=== PATIENT | male | born 1970 | race Caucasian/White ===

== ENCOUNTER 2017-07-20 07:03 | Day surgery (SDC) | payer OTHER ==
[~2017-07-20] VITALS: Ht 180.3 cm; Wt 113.4 kg
[2017-07-20 07:31] VITALS: BP 142/93
[2017-07-20 10:39] VITALS: BP 116/65
== END 2017-07-20 11:55 | disposition home or self-care (01) ==
LOC: DS 07:03 → GI 09:30 → OR 09:30 → DS 11:55
PROVIDERS: Internal Medicine Gastroenterology
PROC: 0DB68ZX Excision of Stomach, Via Natural or Artificial Opening Endoscopic, Diagnostic (ICD-10-PCS; principal; 2017-07-20 09:30)
DX: K21.9 Gastro-esophageal reflux disease without esophagitis (principal); K21.0 Gastro-esophageal reflux disease with esophagitis; K44.9 Diaphragmatic hernia without obstruction or gangrene; K31.7 Polyp of stomach and duodenum
CPT/HCPCS: 43235; J1200; J1610; J2250; J2310; J3010; J3490

== ENCOUNTER 2017-10-25 07:01 | Emergency (ER) | payer OTHER ==
[~2017-10-25] VITALS: Ht 180.3 cm; Wt 114.0 kg
[2017-10-25 07:08] VITALS: Ht 180.3 cm; Wt 114.0 kg
[2017-10-25 08:26] VITALS: BP 125/85
[2017-10-26] MEDS ORDERED: GOOD SENSE OMEP20 MG PO (01:27)
[2017-10-26] MEDS ORDERED: CITALOPRAM HYDR40 M1 PO (01:29)
== END 2017-10-25 09:59 | disposition home or self-care (01) ==
LOC: ED 07:01
DX: J18.9 Pneumonia, unspecified organism (principal); M54.6 Pain in thoracic spine; K21.9 Gastro-esophageal reflux disease without esophagitis
CPT/HCPCS: J0696; J2270; Q0162

== ENCOUNTER 2017-10-25 22:05 | Inpatient (IN) | payer OTHER ==
[~2017-10-25] VITALS: Ht 180.3 cm; Wt 114.6 kg
[2017-10-25 22:46] VITALS: Ht 180.3 cm; Wt 114.6 kg
[2017-10-26] VITALS (7 sets, daily range): BP systolic 115–128; BP diastolic 63–80
[2017-10-26 00:37] LABS: CALCIUM 8.8 mg/dL (8.5-10.1); CARBON DIOXIDE 28.6 mmol/L (21-32); CHLORIDE SERUM 96 mmol/L (98-107); CREATININE SERUM 1.2 mg/dL (0.7-1.3); GFR1 > 60 mL/min; GLUCOSE SERUM 125 mg/dL (74-106); POTASSIUM SERUM 4.4 mmol/L (3.5-5.1); SODIUM SERUM 128 mmol/L (136-145)
[2017-10-26 00:41] LABS: ALKALINE PHOSPHATASE 115 U/L (46-116); ALT/SGPT 88 U/L (16-63); AST/SGOT 38 U/L (15-37); BILIRUBIN TOTAL 0.62 mg/dL (0.20-1.00); LIPASE 101 IU/L (73-393)
[2017-10-26 00:42] LABS: ALBUMIN 3.3 g/dL (3.4-5.0); TOTAL PROTEIN, SERUM 8.9 g/dL (6.4-8.2)
[2017-10-26 00:51] LABS: PLATELET COUNT 439 x10^3mcL (130-400); RED CELL DISTRIBUTION WIDTH 18.3 % (11.5-14.5)
[2017-10-26 01:22] LABS: BAND NEUTROPHIL 2 % (0-10); MONOCYTE 5 % (0-7); SEGMENTED NEUTROPHILS 80 % (37-75)
[2017-10-26 01:25] LABS: BASOPHIL 0 % (0-2)
[2017-10-26 01:26] LABS: rbc morphology (normal/abnorm) ABNORMAL (NORMAL)
[2017-10-26] MEDS ORDERED: GOOD SENSE OMEP20 MG PO (01:27)
[2017-10-26] MEDS ORDERED: CITALOPRAM HYDR40 M1 PO (01:29)
[2017-10-26 02:42] LABS: UA SPECIFIC GRAVITY >=1.030 (1.005-1.035); microscopic required? YES; urine erythrocyte NEGATIVE (NEGATIVE)
[2017-10-26 10:21] LABS: AMPHETAMINE QUAL UR NONE DETECTED (See below)
[2017-10-27 05:24] VITALS: BP 112/67
[2017-10-27 06:16] LABS: CALCIUM 8.5 mg/dL (8.5-10.1); CARBON DIOXIDE 32.7 mmol/L (21-32); CHLORIDE SERUM 100 mmol/L (98-107); CREATININE SERUM 0.9 mg/dL (0.7-1.3); GFR1 > 60 mL/min; GLUCOSE SERUM 116 mg/dL (74-106); SODIUM SERUM 137 mmol/L (136-145)
[2017-10-27 08:23] LABS: PLATELET COUNT 346 x10^3mcL (130-400)
[2017-10-27 08:25] LABS: BASOPHIL % 0 % (0-2); RED CELL DISTRIBUTION WIDTH 18.1 % (11.5-14.5)
[2017-10-27 09:17] VITALS: BP 123/80
[2017-10-27 13:13] VITALS: BP 127/63
[2017-10-27 17:00] VITALS: BP 108/72
[2017-10-27 20:43] VITALS: BP 116/74
[2017-10-28 05:28] VITALS: BP 126/75
[2017-10-28 05:59] LABS: BASOPHIL % 0.3 % (0-2); PLATELET COUNT 362 x10^3mcL (130-400)
[2017-10-28 06:01] LABS: RED CELL DISTRIBUTION WIDTH 18.8 % (11.5-14.5)
[2017-10-28 06:14] LABS: CALCIUM 8.6 mg/dL (8.5-10.1); CHLORIDE SERUM 101 mmol/L (98-107); GFR1 > 60 mL/min; GLUCOSE SERUM 109 mg/dL (74-106); POTASSIUM SERUM 4.4 mmol/L (3.5-5.1); SODIUM SERUM 136 mmol/L (136-145)
[2017-10-28 08:22] VITALS: BP 133/75
[2017-10-28] MEDS ORDERED: LEVAQUIN750 MG PO (09:32)
[2017-10-28 10:18] VITALS: BP 133/75
[2017-10-28 11:40] VITALS: BP 121/77
== END 2017-10-28 13:38 | disposition home or self-care (01) | DRG 720 ==
LOC: ED 22:05 → DU 10-26 01:45
PROVIDERS: Emergency Medicine; Internal Medicine Pulmonary Disease
DX: A41.9 Sepsis, unspecified organism (principal); J13 Pneumonia due to Streptococcus pneumoniae; E87.1 Hypo-osmolality and hyponatremia; N28.89 Other specified disorders of kidney and ureter; F41.9 Anxiety disorder, unspecified; K21.9 Gastro-esophageal reflux disease without esophagitis; R09.02 Hypoxemia
CPT/HCPCS: 83880; J0696; J1885; J1956; J2270; J2543; J3490; J7030; Q0092; Q0162; Q9967

== ENCOUNTER 2017-11-01 07:09 | Observation (INO) | payer OTHER ==
[~2017-11-01] VITALS: Ht 180.3 cm; Wt 111.7 kg
[~2017-11-01 07:09] MED LIST: CITALOPRAM HYDR40 M1 PO; GOOD SENSE OMEP20 MG PO; LEVAQUIN750 MG PO
[2017-11-01 07:20] VITALS: Ht 180.3 cm; Wt 111.7 kg
[2017-11-01 08:10] LABS: BASOPHIL % 0.2 % (0-2)
[2017-11-01 08:19] LABS: PLATELET COUNT 493 x10^3mcL (130-400); RED CELL DISTRIBUTION WIDTH 18.4 % (11.5-14.5)
[2017-11-01 08:31] LABS: CALCIUM 8.5 mg/dL (8.5-10.1); CARBON DIOXIDE 27.2 mmol/L (21-32); CHLORIDE SERUM 97 mmol/L (98-107); CREATININE SERUM 1.1 mg/dL (0.7-1.3); GFR1 > 60 mL/min; GLUCOSE SERUM 114 mg/dL (74-106); POTASSIUM SERUM 3.9 mmol/L (3.5-5.1); SODIUM SERUM 131 mmol/L (136-145)
[2017-11-01 08:35] LABS: ALKALINE PHOSPHATASE 204 U/L (46-116); ALT/SGPT 93 U/L (16-63); AMYLASE 41 U/L (25-115); AST/SGOT 82 U/L (15-37); BILIRUBIN TOTAL 0.49 mg/dL (0.20-1.00); LIPASE 190 IU/L (73-393); TOTAL PROTEIN, SERUM 7.8 g/dL (6.4-8.2)
[2017-11-01 08:37] LABS: ALBUMIN 2.3 g/dL (3.4-5.0)
[2017-11-01 10:54] LABS: microscopic required? YES; urine erythrocyte NEGATIVE (NEGATIVE)
[2017-11-01] MEDS ORDERED: NORCO1 TA2 GT (11:08)
[2017-11-01 12:45] LABS: AMPHETAMINE QUAL UR NONE DETECTED (See below)
[2017-11-01 13:17] VITALS: BP 121/75
[2017-11-01 17:08] VITALS: BP 118/71
[2017-11-01 20:00] VITALS: BP 141/82
[2017-11-02 05:09] VITALS: BP 123/77
[2017-11-02 06:37] LABS: BASOPHIL % 0.2 % (0-2)
[2017-11-02 06:46] LABS: ALKALINE PHOSPHATASE 168 U/L (46-116); ALT/SGPT 76 U/L (16-63); AST/SGOT 55 U/L (15-37); BILIRUBIN TOTAL 0.4 mg/dL (0.20-1.00); CALCIUM 8.2 mg/dL (8.5-10.1); CARBON DIOXIDE 28.7 mmol/L (21-32); CHLORIDE SERUM 99 mmol/L (98-107); CREATININE SERUM 0.8 mg/dL (0.7-1.3); GFR1 > 60 mL/min; GLUCOSE SERUM 102 mg/dL (74-106); MAGNESIUM 2.1 mg/dL (1.8-2.4); PHOSPHOROUS 3.1 mg/dL (2.5-4.9); PLATELET COUNT 402 x10^3mcL (130-400); POTASSIUM SERUM 4.1 mmol/L (3.5-5.1); RED CELL DISTRIBUTION WIDTH 18.6 % (11.5-14.5); SODIUM SERUM 135 mmol/L (136-145)
[2017-11-02 08:57] VITALS: BP 118/77
[2017-11-02 16:01] VITALS: BP 128/80
[2017-11-02 20:00] VITALS: BP 120/74
[2017-11-03 05:25] VITALS: BP 114/81
[2017-11-03 06:56] LABS: ALKALINE PHOSPHATASE 190 U/L (46-116); ALT/SGPT 92 U/L (16-63); AST/SGOT 71 U/L (15-37); BILIRUBIN TOTAL 0.4 mg/dL (0.20-1.00); CALCIUM 8.3 mg/dL (8.5-10.1); CARBON DIOXIDE 31.8 mmol/L (21-32); CHLORIDE SERUM 99 mmol/L (98-107); CREATININE SERUM 0.8 mg/dL (0.7-1.3); GFR1 > 60 mL/min; GLUCOSE SERUM 99 mg/dL (74-106); MAGNESIUM 2.2 mg/dL (1.8-2.4); PHOSPHOROUS 3.6 mg/dL (2.5-4.9); POTASSIUM SERUM 3.9 mmol/L (3.5-5.1); SODIUM SERUM 135 mmol/L (136-145); TOTAL PROTEIN, SERUM 7.2 g/dL (6.4-8.2)
[2017-11-03 07:01] LABS: ALBUMIN 2.1 g/dL (3.4-5.0)
[2017-11-03 07:02] LABS: BASOPHIL % 0.1 % (0-2); PLATELET COUNT 384 x10^3mcL (130-400)
[2017-11-03 07:06] LABS: RED CELL DISTRIBUTION WIDTH 18.5 % (11.5-14.5)
[2017-11-03 09:20] VITALS: BP 122/76
[2017-11-03 17:27] VITALS: BP 118/72
[2017-11-03 20:50] VITALS: BP 128/91
[2017-11-04 05:22] VITALS: BP 132/84
[2017-11-04 06:57] LABS: ALKALINE PHOSPHATASE 179 U/L (46-116); ALT/SGPT 93 U/L (16-63); AST/SGOT 66 U/L (15-37); BILIRUBIN TOTAL 0.3 mg/dL (0.20-1.00); CALCIUM 7.9 mg/dL (8.5-10.1); CARBON DIOXIDE 28.4 mmol/L (21-32); CHLORIDE SERUM 100 mmol/L (98-107); CREATININE SERUM 0.7 mg/dL (0.7-1.3); GFR1 > 60 mL/min; GLUCOSE SERUM 97 mg/dL (74-106); MAGNESIUM 2.1 mg/dL (1.8-2.4); PHOSPHOROUS 3.6 mg/dL (2.5-4.9); POTASSIUM SERUM 3.4 mmol/L (3.5-5.1); SODIUM SERUM 138 mmol/L (136-145); TOTAL PROTEIN, SERUM 7.1 g/dL (6.4-8.2)
[2017-11-04 07:10] LABS: BASOPHIL % 0.2 % (0-2); PLATELET COUNT 381 x10^3mcL (130-400)
[2017-11-04 07:18] LABS: RED CELL DISTRIBUTION WIDTH 18.8 % (11.5-14.5)
[2017-11-04 08:51] VITALS: BP 114/70
[2017-11-04 10:20] LABS: ovalocyte/elliptocyte 1+
[2017-11-04 10:31] LABS: rbc morphology (normal/abnorm) ABNORMAL (NORMAL)
[2017-11-04 16:48] VITALS: BP 125/82
[2017-11-04 17:05] VITALS: BP 122/82
== END 2017-11-04 18:27 | disposition home or self-care (01) | DRG 137 ==
LOC: ED 07:09 → MU 11:14
PROVIDERS: Emergency Medicine; Internal Medicine Pulmonary Disease
DX: J69.0 Pneumonitis due to inhalation of food and vomit (principal); E87.3 Alkalosis; E46 Unspecified protein-calorie malnutrition; E87.1 Hypo-osmolality and hyponatremia; R09.02 Hypoxemia; K21.9 Gastro-esophageal reflux disease without esophagitis; K44.9 Diaphragmatic hernia without obstruction or gangrene; M94.0 Chondrocostal junction syndrome [Tietze]; N28.89 Other specified disorders of kidney and ureter; F39 Unspecified mood [affective] disorder; F17.210 Nicotine dependence, cigarettes, uncomplicated; Z68.33 Body mass index [BMI] 33.0-33.9, adult
CPT/HCPCS: 36600; G0378; J0295; J1644; J2405; J3490; J7030; Q0092; Q0162

== ENCOUNTER → 2017-12-17 | Outpatient (CLI) | payer OTHER ==
[~2017-12-17] MED LIST changes: +NORCO1 TA2 GT
== END | disposition home or self-care (01) ==
LOC: CT 08:19
PROC: BW201ZZ Computerized Tomography (CT Scan) of Abdomen using Low Osmolar Contrast (ICD-10-PCS; principal; 2017-12-17)
DX: D49.519 Neoplasm of unspecified behavior of unspecified kidney (principal)
CPT/HCPCS: Q9967

== ENCOUNTER 2018-11-04 08:15 | Emergency (ER) | payer OTHER ==
[~2018-11-04] VITALS: Ht 177.8 cm; Wt 121.1 kg
[2018-11-04 08:20] VITALS: Ht 177.8 cm; Wt 121.1 kg
[2018-11-04 11:12] VITALS: BP 111/66
== END 2018-11-04 11:12 | disposition home or self-care (01) ==
LOC: ED 08:15
DX: S62.014A Nondisplaced fracture of distal pole of navicular [scaphoid] bone of right wrist, initial encounter for closed fracture (principal); S80.212A Abrasion, left knee, initial encounter; S60.811A Abrasion of right wrist, initial encounter; F41.9 Anxiety disorder, unspecified; K21.9 Gastro-esophageal reflux disease without esophagitis; V28.4XXA Motorcycle driver injured in noncollision transport accident in traffic accident, initial encounter; Y93.I9 Activity, other involving external motion; Y92.488 Other paved roadways as the place of occurrence of the external cause; Y99.8 Other external cause status
CPT/HCPCS: 90715; J1885; J2270; J2405

== ENCOUNTER 2019-08-24 08:21 | Day surgery (SDC) | payer OTHER ==
[~2019-08-24] VITALS: Ht 177.8 cm; Wt 116.1 kg
[2019-08-24 08:35] VITALS: BP 145/87
[2019-08-24 08:55] VITALS: BP 145/87
[2019-08-24 13:11] VITALS: BP 142/88
== END 2019-08-24 12:45 | disposition home or self-care (01) ==
LOC: DS 08:21 → OR 10:30 → DS 10:30
PROVIDERS: ATTEND Surgery
DX: K21.9 Gastro-esophageal reflux disease without esophagitis (principal); K29.70 Gastritis, unspecified, without bleeding; K44.9 Diaphragmatic hernia without obstruction or gangrene; K31.7 Polyp of stomach and duodenum; Z11.59 Encounter for screening for other viral diseases
CPT/HCPCS: 43235; J1200; J1610; J2250; J2310; J3010; J3490; U0003-CS